=== PATIENT | female | born 1950 | race Caucasian/White ===

== ENCOUNTER 2016-10-09 16:42 | Emergency (ER) | payer OTHER ==
--- NOTE | 2016-10-09 16:58 | EDPHY ---
H & P Stated Complaint: possible allergic reaction; shakey, arms tingling Time Seen by Provider: 10/09/16 16:48 HPI/ROS: CHIEF COMPLAINT: "I'm jumpity" HISTORY OF PRESENT ILLNESS: 65-year-old female arrives by ambulance from [facility]. She went to [facility] urgent care initially via private vehicle stating that she returned to [facility] room from going for a walk should sudden onset of "feeling jumpity", described as anxiety/panic attack like symptoms, hyperventilation, carpal pedal spasms, symmetrical peripheral paresthesias. Denies: Headache, visual disturbance, chest pain, back pain, abdominal pain, nausea, vomiting, diaphoresis, alcohol or drug use, trauma. She notes no ongoing rash present for the past 1 month of unclear etiology. Describes this rash is waxing and waning, not followed dermatomal distribution, intermittently pruritic, nontender. No intraoral lesions. No genitalia lesions. No diarrhea. No vomiting. No ocular complaints. PRIMARY CARE PROVIDER: no primary care provider REVIEW OF SYSTEMS: A ten point review of systems was performed and is negative with the exception of the items mentioned in the HPI PAST MEDICAL & SURGICAL HISTORY: No history of thyroid disease, cardiac disease, pulmonary disease SOCIAL HISTORY: nonsmoker. Intermittent social alcohol. No cannabis or other drug use. FAMILY HISTORY: father with congenital heart defect otherwise no pertinent family history PHYSICAL EXAM (Prior to examination, patient consented to physical exam, hands were washed and my usual and customary physical exam procedures followed) 1) GENERAL: Well-developed, well-nourished, alert and oriented. Appears anxious , tremulous 2) HEAD: Normocephalic, atraumatic 3) HEENT: Pupils equal, round, reactive to light bilaterally. Sclera anicteric. Nasopharynx, oropharynx, clear, no lesions. no Tonsillar or glossal enlargement. No blunting of a voice. Ears bilaterally with normal tympanic membranes. 4) NECK: Full range of motion, no meningeal signs. 5) LUNGS: Clear auscultation bilaterally, no wheezes, no rhonchi, no retractions. 6) HEART: Regular rate and rhythm, no murmur, no heave, no gallop. 7) ABDOMEN: No guarding, no rebound, no focal tenderness, negative McBurney's, negative Pratt's, negative Rovsing's, negative peritoneal sign, 8) MUSCULOSKELETAL: Moving all extremities, no focal areas of tenderness, no obvious trauma. No peripheral edema or discoloration. 9) BACK: No CVA tenderness, no midline vertebral tenderness, no fluctuance, no step-off, no obvious trauma, no visual or palpable abnormality. 10) SKIN: Dermatologic examination with of female ER machine shop repair technician Damaris at bedside. Left suprapubic region 1 cm x 2 cm excoriated area nontender, nondraining non erythematous. No other lesions visualized in this area. Otherwise patient notes barely perceptible lesions in various locations including shoulders legs chest and back. These are flat, nontender, less than 1 mm, nonvesicular, does not follow a dermatomal distribution. 11) Psychiatric: Patient is oriented X 3, there is no agitation. 12) NEURO: Awake, alert, and oriented to person, place and time. Answers questions appropriately. There were no obvious focal neurologic abnormalities. No cerebellar dysfunction. Cranial nerves 2 through to 12 intact. Normal steady gait. Upper and lower extremities bilaterally with strength 5 / 5, reflexes 2+. DIFFERENTIAL DIAGNOSIS: in no particular order including but not limited to UT , anxiety, CVA, allergic reaction - Personal History Current Tetanus/Diphtheria Vaccine: Yes Current Tetanus Diphtheria and Acellular Pertussis (TDAP): Yes - Medical/Surgical History Hx Asthma: No Hx Chronic Respiratory Disease: No Hx Diabetes: No Hx Cardiac Disease: No Hx Renal Disease: No Hx Cirrhosis: No Hx Alcoholism: No Hx HIV/AIDS: No Hx Splenectomy or Spleen Trauma: No Other PMH: denies - Social History Smoking Status: Never smoked Constitutional: Initial Vital Signs Temperature (C) 36.4 C 10/09/16 16:52 Heart Rate 102 H 10/09/16 16:52 Respiratory Rate 20 10/09/16 16:52 Blood Pressure 145/102 H 10/09/16 16:52 O2 Sat (%) 100 10/09/16 16:52 O2 Delivery Mode Room Air Allergies/Adverse Reactions: Sulfa (Sulfonamide Antibiotics) Allergy (Severe, Verified 08/27/11 11:43) Anaphylaxis Home Medications: Medication Instructions Recorded LORazepam [Ativan 1 mg (RX)] 1 mg PO Q6 PRN #5 tab 10/09/16 Medical Decision Making ED Course/Re-evaluation: 5:05 p.m.: This patient appears anxious. She has no complaints of pain discomfort. Her primary concern is an ongoing rash for the past 1 month. I do not think this rash is secondary to acute infectious etiology such as cellulitis. Doubt zoster. Doubt varicella. Doubt Barclay-Sukh. Malignancy not ruled out. I have recommended follow-up with immigration lawyer she may necessitate biopsy of these lesions. 5:30 p.m.: Re-evaluation. States that she started to feel return symptoms including dry mouth, tingling in bilateral fingers and toes, anxiety. Will administer oral Ativan and re-evaluate. She has a nonfocal exam at this time as well. No complaints of chest pain, headache, visual disturbance, dyspnea. 6:40 p.m.: Re-evaluation after 1 mg of oral Ativan. At this time she is sleeping, easily woken, states that she is asymptomatic. She does describe intermittent "zing" sensations throughout her body, not followed definitive dermatomal pattern. She is reexamined has a nonfocal exam, is breathing comfortably. Had a lengthy discussion with the patient informed that I think that CVA, UT, PE, less than likely at this time. Doubt allergic reaction. She has no clinical evidence of allergic reaction was therefore not given medication to treat allergic reaction. She has inquired about her waxing and waning rash for the past 1 month specifically a lesion on her left suprapubic region. I have examined this area, it is findings are not consistent with infectious etiology. I have recommended follow-up with dermatology. Malignancy is not ruled out. I have provided her with dermatology referral information. She has an upcoming appoint with her primary care provider Dr. Jessica Donnelly that I recommend she keep. In the meantime should she develop new or worsening symptoms she is call 911. She feels comfortable being discharged all questions and concerns addressed by myself. Discussed case with Dr. Alcon Johnston in ER - Data Points Medications Given: Discontinued Medications Lorazepam (Ativan) 1 mg PO EDNOW ONE Stop: 10/09/16 17:34 Last Admin: 10/09/16 17:40 Dose: 1 mg Departure - Departure Disposition: Home, Routine, Self-Care Clinical Impression: Rash, Anxiety Condition: Good Instructions: Anxiety (ED), Acute Rash (ED) Additional Instructions: Call 911 if you develop chest pain, shortness of breath, slurred speech, difficulty speaking, difficulty breathing, worsening rash or any other symptoms that concern you. Referrals: Jessica Donnelly MD [Primary Care Provider] - 5-7 days, call for appt. Maurice Lugo MD [Medical Doctor] - 5-7 days, call for appt. (Dr. Alcon Lugo is a immigration lawyer at [facility]) Prescriptions: LORazepam [Ativan 1 mg (RX)] 1 mg PO Q6 PRN #5 tab PRN Reason: Anxiety
--- NOTE | 2016-10-09 17:08 | CPEKG ---
Heart Rate: 83 RR Interval: 723 P-R Interval: 149 QRSD Interval: 98 QT Interval: 400 QTC Interval: 470 P [place]: 53 QRS [place]: -27 T Wave [place]: 46 EKG Severity - OTHERWISE NORMAL ECG - EKG Impression: SINUS RHYTHM EKG Impression: BORDERLINE LEFT AXIS DEVIATION Electronically Signed By: Baldemar Armstrong 10-Oct-2016 14:23:54
[2016-10-09] MEDS ORDERED: LORazepam 1 MG TAB PO ONE (17:33)
[2016-10-09 19:09] VITALS: BP 111/73; PULSE 81; RESP 16; TEMP 98.2; O2SAT 96
== END 2016-10-09 19:21 | disposition home or self-care (01) ==
LOC: EDUNIT#
DX: F41.9 Anxiety disorder, unspecified (principal); R21 Rash and other nonspecific skin eruption

== ENCOUNTER → 2016-11-14 | Outpatient (CLI) | payer OTHER ==
[~2016-11-14] MED LIST: GADOBUTROL 10 ML VIAL IVP ONE
== END ==
LOC: FIMAGING 13:59
PROVIDERS: ATTEND Psychiatry & Neurology Neurology
DX: M50.821 Other cervical disc disorders at C4-C5 level (principal); M50.822 Other cervical disc disorders at C5-C6 level; M50.823 Other cervical disc disorders at C6-C7 level; R29.818 Other symptoms and signs involving the nervous system
CPT/HCPCS: 70553; 72141; A9585

== ENCOUNTER 2016-11-21 16:51 | Emergency (ER) | payer OTHER ==
[2016-11-21 17:09] VITALS: TEMP 97.9
--- NOTE | 2016-11-21 17:25 | EDPHY ---
H & P Stated Complaint: Shakiness,L arm numbness x several mos;L upper chest pain, sent for EKG Time Seen by Provider: 11/21/16 17:10 HPI/ROS: CHIEF COMPLAINT: Left upper arm numbness and tingling, with left lateral chest pressure HISTORY OF PRESENT ILLNESS: This is a 66-year-old female presenting to the emergency department complaining of left arm feeling pins and needles onset today around 1430. Patient states she has been seen back in September for similar symptoms, has been following up with neuro neuro surgery. Patient had 2 MRIs done yesterday November [address] Colby called her and stated some narrowing noted to the spinal canal but no acute finding. Patient states she has these episodes where she has numbness and tingling in her left upper extremity left lower extremity since the end of August, patient did report this symptoms were a little bit different with the left sided breast or chest pressure. Denies any shortness of breath or chest pain at this time no dizziness or lightheadedness REVIEW OF SYSTEMS: Constitutional: No fever, no chills. Eyes: No discharge. ENT: No sore throat. Cardiovascular: Left side breast pressure, no palpitations. Respiratory: No cough, no shortness of breath. Gastrointestinal: No abdominal pain, no vomiting. Genitourinary: No hematuria. Musculoskeletal: No back pain. Cervical trapezius pain, left upper and lower extremity tingling and numbness Skin: No rashes. Neurological: No headache, no dizziness Source: Patient, Family - Personal History Current Tetanus Diphtheria and Acellular Pertussis (TDAP): Unsure - Medical/Surgical History Hx Asthma: No Hx Chronic Respiratory Disease: No Hx Diabetes: No Hx Cardiac Disease: No Hx Renal Disease: No Hx Cirrhosis: No Hx Alcoholism: No Hx HIV/AIDS: No Hx Splenectomy or Spleen Trauma: No Other PMH: ?anxiety - Social History Smoking Status: Never smoked - Physical Exam Exam: General Appearance: Alert, no distress. Eyes: Pupils equal and round no pallor or injection. ENT, Mouth: Mucous membranes moist. Respiratory: There are no retractions, lungs are clear to auscultation. Cardiovascular: Regular rate and rhythm. Gastrointestinal: Abdomen is soft and nontender, no masses, bowel sounds normal. Neurological: No focal deficits. Equal bilateral strength. Ambulatory with steady gait without difficulty Skin: Warm and dry, no rashes. Musculoskeletal: Neck is supple, left trapezius tenderness on palpation. Extremities: symmetrical, full range of motion. Psychiatric: Patient is oriented X 3, there is no agitation. Constitutional: Initial Vital Signs Temperature (C) 36.6 C 11/21/16 17:06 Heart Rate 89 11/21/16 17:06 Respiratory Rate 20 11/21/16 17:06 Blood Pressure 141/102 H 11/21/16 17:06 O2 Sat (%) 100 11/21/16 17:06 O2 Delivery Mode Room Air Allergies/Adverse Reactions: Sulfa (Sulfonamide Antibiotics) Allergy (Intermediate, Verified 11/21/16 16:59) severe n/v Home Medications: Medication Instructions Recorded Diazepam [Valium 5 MG (*)] 5 mg PO PRN PRN #10 tab 11/21/16 methylPREDNISolone [Medrol Dose 1 each PO AD #0 ea 11/21/16 [place]] Medical Decision Making - Diagnostics Imaging Results: Imaging Impressions Chest X-Ray 11/21/16 17:25 Impression: Nothing acute radiographically. ED Course/Re-evaluation: Discussed the plan of care: EKG, CBC, BMP, troponin, chest x-ray,. Reviewed previous MRI of spine done on 10/25/2016 which shows moderate canal stenosis and disc herniation at T2 and T3 with additional stenosis along the cervical spine. Will consult with Dr. Colby office 1915: Discussed lab results and EKG with patient on negative. Also discussed with patient for her to follow up with Dr. Colby office and call Dr. Bundy in the morning for follow-up. Continue taking gabapentin, I have written a prescription for Medrol Dosepak this will help with inflammation. If at any point time you feel symptoms are worsening return to the emergency department 1920: DC home---> stable Differential Diagnosis: Other differential diagnosis considered but not limited to CVA, seizure, and [place] - Data Points Laboratory Results: Laboratory Results 11/21/16 17:30 11/21/16 17:30 11/21/16 11/21/16 17:30 17:30 WBC 5.17 10^3/uL 10^3/uL (3.80-9.50) RBC 4.68 10^6/uL 10^6/uL (4.18-5.33) Hgb 14.3 g/dL g/dL (12.6-16.3) Hct 40.3 % % (38.0-47.0) MCV 86.1 fL fL (81.5-99.8) MCH 30.6 pg pg (27.9-34.1) MCHC 35.5 g/dL g/dL (32.4-36.7) RDW 12.7 % % (11.5-15.2) Plt Count 382 10^3/uL 10^3/uL (150-400) MPV 9.0 fL fL (8.7-11.7) Neut % (Auto) 60.4 % % (39.3-74.2) Lymph % (Auto) 31.3 % % (15.0-45.0) [place] % (Auto) 7.7 % % (4.5-13.0) Eos % (Auto) 0.0 % L % (0.6-7.6) Baso % (Auto) 0.4 % % (0.3-1.7) Nucleat RBC Rel Count 0.0 % % (0.0-0.2) Absolute Neuts (auto) 3.12 10^3/uL 10^3/uL (1.70-6.50) Absolute Lymphs (auto) 1.62 10^3/uL 10^3/uL (1.00-3.00) Absolute Monos (auto) 0.40 10^3/uL 10^3/uL (0.30-0.80) Absolute Eos (auto) 0.00 10^3/uL L 10^3/uL (0.03-0.40) Absolute Basos (auto) 0.02 10^3/uL 10^3/uL (0.02-0.10) Absolute Nucleated RBC 0.00 10^3/uL 10^3/uL (0-0.01) Immature Gran % 0.2 % % (0.0-1.1) Immature Gran # 0.01 10^3/uL 10^3/uL (0.00-0.10) Sodium 142 mEq/L mEq/L (134-144) Potassium 3.8 mEq/L mEq/L (3.5-5.2) Chloride 103 mEq/L mEq/L (97-110) Carbon Dioxide 24 mEq/l mEq/l (22-31) Anion Gap 15 mEq/L mEq/L (8-16) BUN 17 mg/dL mg/dL (7-23) Creatinine 0.7 mg/dL mg/dL (0.6-1.0) Estimated GFR > 60 Glucose 98 mg/dL mg/dL (70-100) Calcium 10.4 mg/dL mg/dL (8.5-10.4) Troponin I < 0.012 ng/mL ng/mL (0-0.034) Medications Given: Discontinued Medications Diazepam (Valium) 5 mg PO EDNOW ONE Stop: 11/21/16 19:17 Last Admin: 11/21/16 19:24 Dose: 5 mg Departure - Departure Disposition: Home, Routine, Self-Care Clinical Impression: Numbness and tingling of left arm and leg Herniated disc Qualifiers: Spinal region: thoracic Qualified Code(s): M51.24 - Other intervertebral disc displacement, thoracic region Condition: Good Instructions: Paresthesia (ED) Additional Instructions: Discussed discharge instructions 1. continue taking gabapentin that was prescribed you 2. Start taking prednisone as prescribed 3. You have also been given a prescription for Valium to help with anxiety 4. Call Dr. Colby and Dr. Bundy is office tomorrow Referrals: Jessica Donnelly MD [Primary Care Provider] - As per Instructions Prescriptions: Diazepam [Valium 5 MG (*)] 5 mg PO PRN PRN #10 tab PRN Reason: Spasms methylPREDNISolone [Medrol Dose [place]] 1 each PO AD #0 ea
[2016-11-21 17:45] LABS: % IMMATURE GRANULYOCYTES 0.2 % (0.0-1.1); ABSOLUTE IMMATURE GRANULOCYTES 0.01 10^3/uL (0.00-0.10); ADD DIFF? NO; ADD MORPH? NO; ADD SCAN? NO; ATYPICAL LYMPHOCYTE FLAG 30 (0-99); FRAGMENT RBC FLAG 0 (0-99); HEMATOCRIT 40.3 % (38.0-47.0); HEMOGLOBIN 14.3 g/dL (12.6-16.3); LEFT SHIFT FLG 0 (0-99); LIPEMIA HEMOLYSIS FLAG 90 (0-99); MEAN CELL HEMOGLOBIN 30.6 pg (27.9-34.1); MEAN CELL HEMOGLOBIN CONCENTR. 35.5 g/dL (32.4-36.7); MEAN CELL VOLUME 86.1 fL (81.5-99.8); PLATELET CLUMPS FLAG 0 (0-99); PLATELET COUNT 382 10^3/uL (150-400); RED BLOOD CELL COUNT 4.68 10^6/uL (4.18-5.33); RED CELL DISTRIBUTION WIDTH 12.7 % (11.5-15.2)
--- NOTE | 2016-11-21 17:46 | CPEKG ---
Heart Rate: 73 RR Interval: 822 P-R Interval: 136 QRSD Interval: 108 QT Interval: 416 QTC Interval: 459 P [place]: 57 QRS [place]: -44 T Wave [place]: 35 EKG Severity - BORDERLINE ECG - EKG Impression: SINUS RHYTHM EKG Impression: BORDERLINE IVCD WITH LAD Electronically Signed By: Marcos Morris 21-Nov-2016 20:26:03
[2016-11-21 18:03] LABS: ANION GAP 15 mEq/L (8-16); CALCIUM 10.4 mg/dL (8.5-10.4); CARBON DIOXIDE 24 mEq/l (22-31); CHLORIDE 103 mEq/L (97-110); CREATININE 0.7 mg/dL (0.6-1.0); GLOMERULAR FILTRATION RATE > 60; GLUCOSE 98 mg/dL (70-100); POTASSIUM 3.8 mEq/L (3.5-5.2); SODIUM 142 mEq/L (134-144)
[2016-11-21 18:16] LABS: TROPONIN I < 0.012 ng/mL (0-0.034)
[2016-11-21] MEDS ORDERED: DIAZEPAM 5 MG TAB PO ONE (19:16)
[2016-11-21 19:25] VITALS: BP 162/95; PULSE 71; RESP 16; O2SAT 99
== END 2016-11-21 19:31 | disposition home or self-care (01) ==
DX: M51.24 Other intervertebral disc displacement, thoracic region (principal)

== ENCOUNTER → 2016-11-21 | Outpatient (CLI) | payer OTHER | LOC: FIMAGING 09:43 | DX: Z12.31 Encounter for screening mammogram for malignant neoplasm of breast (principal) | CPT/HCPCS: G0202 ==

== ENCOUNTER → 2016-11-23 | Outpatient (CLI) | payer OTHER | LOC: FIMAGING 12:11 | PROVIDERS: ATTEND Psychiatry & Neurology Neurology | DX: M51.84 Other intervertebral disc disorders, thoracic region (principal); M51.86 Other intervertebral disc disorders, lumbar region; M51.34 Other intervertebral disc degeneration, thoracic region; M48.06 Spinal stenosis, lumbar region ==

== ENCOUNTER → 2016-11-26 | Outpatient (CLI) | payer OTHER | LOC: FLAB 12:37 | PROVIDERS: ATTEND Neurological Surgery | DX: M54.2 Cervicalgia (principal); M50.30 Other cervical disc degeneration, unspecified cervical region; R93.7 Abnormal findings on diagnostic imaging of other parts of musculoskeletal system ==

== ENCOUNTER → 2016-12-02 | Outpatient (CLI) | payer OTHER ==
--- NOTE | 2016-12-03 13:07 | CPEEG ---
[f rep st] ELECTROENCEPHALOGRAM DATE OF STUDY: 12/02/2016 INTERPRETATION: This 4-hour video EEG recording is normal. There were no potentially epileptogenic abnormalities present during the awake or sleep recordings. During the video EEG monitoring johann rodriguez, the patient did not have any clinical events. REPORT: This 4-hour video EEG contains 11-12 hertz alpha to the posterior head regions. The backgr ound activity was normal and symmetric. There was no abnormal activation at rest, during photic sti mulation or hyperventilation. The patient became drowsy and fell into sustained sleep during the st udy. There was no abnormal activation during drowsiness, sleep, or during times of arousal. The anjelica pantoja did not have any clinical events during the video EEG monitoring session. /[id number]/MODL
== END ==
LOC: FCPNEURO 08:47
PROVIDERS: ATTEND Physician Assistant Medical
DX: R56.9 Unspecified convulsions (principal)

== ENCOUNTER → 2017-06-13 | Outpatient (CLI) | payer OTHER ==
[~2017-06-13] MED LIST changes: -GADOBUTROL 10 ML VIAL IVP ONE; +IOPAMIDOL (ISOVUE 370) 100 ML BTL IV ONE
== END ==
LOC: FIMAGING 12:34
PROVIDERS: ATTEND Psychiatry & Neurology Neurology
DX: R29.818 Other symptoms and signs involving the nervous system (principal); M47.892 Other spondylosis, cervical region
CPT/HCPCS: 70496; 70498; Q9967

== ENCOUNTER → 2018-01-22 | Outpatient (CLI) | payer OTHER | LOC: FIMAGING 11:38 | PROVIDERS: ATTEND Family Medicine | DX: Z12.31 Encounter for screening mammogram for malignant neoplasm of breast (principal) ==

== ENCOUNTER 2018-02-13 06:43 | Inpatient (IN) | payer OTHER ==
[2018-02-13] MEDS ORDERED: NS 500 ML IV ONE (06:59)
[2018-02-13] MEDS ORDERED: ONDANSETRON 4 MG/2 ML VIAL ONE (07:05)
[2018-02-13] MEDS ORDERED: ONDANSETRON 4 MG/2 ML VIAL IVP ONE (07:10)
[2018-02-13 07:27] LABS: PLATELET COUNT 301 10^3/uL (150-400)
--- NOTE | 2018-02-13 07:33 | CPEKG ---
Heart Rate: 43 RR Interval: 1395 QRSD Interval: 140 QT Interval: 632 QTC Interval: 535 P [place]: 74 QRS [place]: -85 T Wave [place]: 98 EKG Severity - ABNORMAL ECG - EKG Impression: COMPLETE AV BLOCK, A-RATE 91 EKG Impression: LVH WITH SECONDARY REPOLARIZATION ABNORMALITY EKG Impression: INFERIOR INFARCT, ACUTE EKG Impression: EXTENSIVE ANTERIOR INFARCT, AGE INDETERMINATE EKG Impression: PROLONGED QT INTERVAL Electronically Signed By: Jabari Mccray 13-Feb-2018 14:16:17
--- NOTE | 2018-02-13 07:34 | CPEKG ---
Heart Rate: 25 RR Interval: 2400 QRSD Interval: 162 QT Interval: 584 QTC Interval: 377 P [place]: 85 QRS [place]: 259 T Wave [place]: 91 EKG Severity - ABNORMAL ECG - EKG Impression: COMPLETE AV BLOCK WITH WIDE QRS COMPLEX Electronically Signed By: Jabari Mccray 13-Feb-2018 14:16:21
[2018-02-13 07:36] LABS: INR 1.09 (0.83-1.16); PROTIME(PATIENT) 14.3 SEC (12.0-15.0)
[2018-02-13] MEDS ORDERED: BIVALIRUDIN 250 MG/5 ML VIAL IV ONE (08:35)
[2018-02-13] MEDS ORDERED: ATROPINE SULFATE 1 MG/10 ML SYR ONE (08:35)
[2018-02-13] MEDS ORDERED: NITROGLYCERIN 1,500 MCG/15 ML VIAL MISC ONE (08:35)
[2018-02-13] MEDS ORDERED: EPINEPHrine 1 MG/10 ML SYR IVP ONE (08:35)
--- NOTE | 2018-02-13 08:38 | PDGENHP ---
History & Physical Chief Complaint: weakness, fatigue, and nausea History of Present Illness: Patient is a healthy 67 y/o F who began to feel ill on Friday of this week. She had weakness, nausea, vomiting, and diarrhea. Because of persistent symptoms, she presented to the emergency room today. Her ECG demonstrated complete heart block with a ventricular escape rate of approximately 25-30 beats per minute. Her troponin is elevated at 10. She has no prior cardiac history. She does have untreated hyperlipidemia. She is on no medications. Pertinent Past, Social, Family History: No major medical problems. Relevant Physical Exam: Hr in the 20's to 30's with CHB. Normal B/P. Lungs CTA. [place] RRRR. No edema.
--- NOTE | 2018-02-13 08:39 | PDPROPOC ---
Sedation Plan of Care Sedation Plan of Care: vital signs stable, mental status noted, patient educated of risks, benefits, alternatives, patient can tolerate sedation ASA Classification: ASA 1 Planned drugs: fentanyl, midazolam Mallampati Score: Class 2 Mallampati Reference Image: Patient passed 3-3-2 rule?: Yes
[2018-02-13] MEDS ORDERED: ATROPINE SULFATE 1 MG/10 ML SYR IVP PRN (09:26)
[2018-02-13] MEDS ORDERED: HYDROCODONE/APAP 5/325 TAB PO PRN (09:26)
[2018-02-13] MEDS ORDERED: NS 1,000 ML IV SCH ×2 (09:30→23:30)
--- NOTE | 2018-02-13 09:49 | PDDXCAT ---
Diagnostic Cath Note - . 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 LAD: Angiographically normal. LCX: Angiographically normal. RCA: Angiographically normal. EDP: 28 mmHg LVEF: 55% Wall motion: Inferoapical hypokinesis. Estimated blood loss: <50ml Closure method: other (Sheaths sewn in.) Assessment: 1) Angiographically normal coronary arteries. 2) Preserved LV function. 3) Complete heart block. Plan: A 6 Faroese sheath was placed in the right femoral vein. A 5 Faroese balloon- directed temporary pacing catheter was advanced to the right ventricular apex. Capture threshold was 2.2 mA. Temporary pacemaker set at 80 bpm with an output of 7 mA. Will arrange for permanent pacemaker implant.
--- NOTE | 2018-02-13 10:28 | GHP ---
[f rep st] HISTORY AND PHYSICAL DATE OF ADMISSION: 02/13/2018 REASON FOR ADMISSION: Complete heart block and elevated troponin. HISTORY: Ms. Paredes is a 67-year-old female with no significant past medical history. She was in her usual state of health, which includes running up to 5 miles per day and hiking. She and her went on a significant hike this past weekend. However, on Friday of this week she began to feel ill. She felt as if she had some type of flu with nausea, vomiting, and diarrhea. At times, she felt very lightheaded, particularly with orthostatic changes in position. Because of the persistence of her symptoms, she presented to the emergency room this morning. There, her ECG demonstrated complete heart block with a ventricular escape rate of 25-30 beats per minute. Her troponin was significantly elevated that 10.77. She denied any episodes of chest discomfort. PAST MEDICAL HISTORY: No major medical problems. MEDICATIONS: No prescription medications. ALLERGIES: Sulfa. SOCIAL HISTORY: She is . She does not smoke or consume significant amounts of alcohol. As mentioned, she is physically active. REVIEW OF SYSTEMS: Apart from the issues mentioned in the History of Present Illness, a 10-point review was negative. PHYSICAL EXAM: VITAL SIGNS: Heart rate 30 with a wide-complex ventricular escape rhythm on telemetry. Blood pressure 100/70. GENERAL: This is a middle- aged woman who appears acutely ill. She is alert and oriented x3. HEAD AND NECK: No scleral icterus. Mucous membranes moist. Carotid pulses 2+ without bruits. CHEST: Lung solis clear to auscultation. CARDIAC: Bradycardic. Regular rhythm with a normal S1 and S2. There are no murmur or gallop. ABDOMEN : Soft, nontender, nondistended, with normal bowel sounds. EXTREMITIES: 2+ pulses and no peripheral edema. LABORATORY STUDIES: Sodium 133, potassium 4.2, BUN and creatinine 31 and 1.3. Troponin 10.77. Her CBC is normal. ECG demonstrates complete heart block with a ventricular escape rhythm. IMPRESSION: This is a 67-year-old female who presents with flu-like symptoms characterized by nausea, vomiting, and diarrhea. She has complete heart block and a significantly elevated troponin. This could be consistent with a late presentation of an inferior myocardial infarction complicated by complete heart block. However, she has had no chest discomfort and has a low CAD risk- profile. Alternatively, she may have developed a viral myocarditis which has affected her conduction system. Preparations are under way to take the patient to the cardiac mechanical laboratory technician for coronary angiography and possible coronary intervention. A temporary transvenous pacemaker will be placed first. Depending on the results of her angiogram, she may require a permanent pacemaker. She will definitely require a hospital stay of greater than 2 midnights for care of her cardiac condition. /[id number]/MODL MTDD
[2018-02-13 10:29] LABS: CREATINE KINASE 444 IU/L (0-156)
[2018-02-13] MEDS ORDERED: IOPAMIDOL (ISOVUE-370) 150 ML BTL IV ONE ×2 (10:55→10:56)
[2018-02-13] MEDS ORDERED: LIDOCAINE 1% 300 MG/30 ML SDV ONE ×2 (10:56→11:13)
[2018-02-13] MEDS ORDERED: MIDAZOLAM 2 MG/2 ML VIAL ONE ×2 (10:56→11:13)
[2018-02-13] MEDS ORDERED: fentaNYL 100 MCG/2 ML INJ ONE ×2 (10:56→11:13)
[2018-02-13] MEDS ORDERED: LIDO/EPI 1% **for epidural** 30 ML SDV ONE (11:13)
[2018-02-13] MEDS ORDERED: IOPAMIDOL (ISOVUE-300) 50 ML VIAL ONE (11:13)
[2018-02-13] MEDS ORDERED: BUPIVACAINE 0.5% 30 ML SDV ONE (11:14)
[2018-02-13] MEDS ORDERED: BACITRACIN IRRIGATION/NS 50,000 UNITS/1,000 ML BTL IRR ONE (11:19)
[2018-02-13] MEDS ORDERED: ceFAZolin 2 GM/DEXTROSE 100 ML IV ONE (11:19)
[2018-02-13] MEDS ORDERED: NS 1,000 ML IV ONE ×2 (11:19→21:08)
--- NOTE | 2018-02-13 11:20 | PDPROPOC ---
Sedation Plan of Care Sedation Plan of Care: vital signs stable, mental status noted, patient educated of risks, benefits, alternatives, patient can tolerate sedation ASA Classification: ASA 4 Planned drugs: fentanyl, midazolam Mallampati Score: Class 1 Mallampati Reference Image: Patient passed 3-3-2 rule?: Yes
--- NOTE | 2018-02-13 11:20 | PDHPUP ---
History & Physical Update H&P update statement: This history and physical update is based on an assessment of the patient which was completed after admission or registration (within 24 hours), but prior to the surgery/procedure. H&P update: H&P reviewed & patient examined, no change in patient's condition since H&P completed
--- NOTE | 2018-02-13 12:17 | ECHO ---
[email or web address] [address] Main: [phone] Fax: Transthoracic Echocardiogram Name: DANETTE PELAEZ MR#: [id number] Study Date: 02/13/2018 Study Time: 11:08 AM Date of : 1950 Age: 67 year(s) Height: 160 cm (63 in.) Weight: 49.9 kg (110 lb.) BSA: 1.5 m2 Gender: Female Examination: Echo Indication: Complete heart block/elevated troponin Image Quality: Contrast: Requested by: Baldemar Armstrong BP: 117 mmHg/75 mmHg Heart Rate: Rhythm: Indication: Complete heart block/elevated troponin Procedure Staff Inventory Control Associate: Rocío Ortiz RDCS Reading Physician: Chris Noe MD Requesting Provider: Conclusions: Normal size left ventricle. Moderate concentric LV hypertrophy. The ejection fraction is estimated to be 40-45 %. LV inferior/inferoseptal brown have marked hypokinesis. LV apical hypokinesis.. Normal size right ventricle. The mitral valve is normal in appearance and function. Mild mitral valve regurgitation is present. The aortic valve is tri-leaflet. Trivial tricuspid valve regurgitation. No previous Measurements: Chambers Valvular Assessment AV/MV Valvular Assessment TV/PV Normal Normal Normal Name Value Range Name Value Range Name Value Range EF Range: 40-45 % AV meanP mmHg ( - ) MV E Vmax: 0.31 m/s ( - ) MV A Vmax: 0.47 m/s ( - ) MV E/A: 0.66 ( - ) Continued Measurements: Valvular Assessment AV/MV Name Value MV E' Septal: 0.03 m/s MV E/E' Septal: 9.10 MV E/E' Lateral: 3.20 Patient: DANETTE PELAEZ Study Date: 02/13/2018 Page 1 of 2 11:08 AM Findings: Left Ventricle: Normal size left ventricle. Moderate concentric LV hypertrophy. The ejection fraction is estimated to be 40-45 %. LV inferior/inferoseptal brown have marked hypokinesis. LV apical hypokinesis.. Right Ventricle: Normal size right ventricle. Left Atrium: The left atrium is normal in size. Right Atrium: The right atrium is normal in size. Mitral Valve: The mitral valve is normal in appearance and function. Mild mitral valve regurgitation is present. Aortic Valve: The aortic valve is normal in appearance and function. The aortic valve is tri-leaflet. Tricuspid Valve: The tricuspid valve is normal in appearance and function. Trivial tricuspid valve regurgitation. Pulmonic Valve: The pulmonic valve is normal in appearance and function. Aorta: The aorta is normal. Pericardium: Trivial pericardial effusion. (No Signature Object) Patient: DANETTE PELAEZ Study Date: 02/13/2018 Page 2 of 2 11:08 AM [id number]
--- NOTE | 2018-02-13 12:43 | ASMTCASEMG ---
Living Arrangements What is your living Answers: With Spouse arrangement? Who do you live with? Type Of Residence What kind of residence do Answers: House you live in? Discharge Plan Comments Coordination Status Comments Notes: Patient is a 67yo female with no significant past medical hx. She presents to the ER with nausea, vomiting, and diarrhea and lightheadedness. Her ECG demonstrated complete heart block with a ventricular escape rate of 25-30 beats per minute and her troponin was elevated 10.77. Patient will go to the [facility] for coronary angiography and possible coronary intervention. No therapies ordered at this time. D/C plan TBD. CM will follow. Date Signed: 02/13/2018 12:42 PM Electronically Signed By:Enedelia Tejeda LCSW
--- NOTE | 2018-02-13 13:51 | PDMN ---
Medical Necessity Medical necessity: Pt meets IP criteria per MD; est los >2 mn for eval/tx of complete heart block w/elevated troponin, N/V/D; admit to ICU for close monitoring/further workup, coronary angiography & possible coronary intervention ; per H&P & order 02/13/18
--- NOTE | 2018-02-13 14:22 | EDPHY ---
H & P Time Seen by Provider: 02/13/18 06:59 HPI/ROS: Chief complaint. Flu symptoms HPI. Patient is a 67-year-old female presents with body aches and headache. This has been occurring for the past 3 days. However at triage patient is found to have a heart rate of 32. She has no chest discomfort or shortness of breath. No cough. No URI symptoms. No fever. No abdominal pain. No history of cardiac disease[place] [address] [place] 5 days ago without any symptoms. The current flu type symptoms began 3 days ago. No unusual leg pain or swelling ROS Constitutional. no fever/chills, no weakness Eyes. no problems with vision ENT. no sore throat, no nasal drainage Cardiovascular. no chest pain Respiratory. no shortness of breath, no cough Abdominal. no abdominal pain, no nausea/vomiting, no diarrhea . no problems urinating MS. Myalgias Skin. no rash Lymph. no swollen glands Neuro. Headache Past Medical/Surgical History: Kidney stones No family history of coronary artery disease Social History: , nonsmoker, no alcohol Smoking Status: Never smoked Physical Exam: General Appearance: Alert well-developed female moderate distress vital signs significant for heart rate of 32 with blood pressure 100/70 Eyes: Pupils equal and round no pallor or injection. ENT, Mouth: Mucous membranes are moist. Respiratory: There are no retractions, lungs are clear to auscultation. Cardiovascular: Bradycardia Gastrointestinal: Abdomen is soft and nontender, no masses, bowel sounds normal. Neurological: Awake and alert, sensory and motor exams grossly normal. Skin: Warm and dry, no rashes. Musculoskeletal: Neck is supple nontender. Extremities symmetrical, full range of motion. Psychiatric: Patient is oriented X 3, there is no agitation. Constitutional: Initial Vital Signs O2 Sat (%) 100 02/13/18 06:55 O2 Delivery Mode Nasal Cannula O2 (L/minute) 2 Allergies/Adverse Reactions: Sulfa (Sulfonamide Antibiotics) Allergy (Intermediate, Verified 11/21/16 16:59) severe n/v Home Medications: Medication Instructions Recorded Acetaminophen [Tylenol 325mg (*)] 325 mg PO Q8HRS PRN 02/13/18 Ibuprofen [Motrin (*)] 200 mg PO Q8HRS PRN 02/13/18 Medical Decision Making - Diagnostics EKG Interpretation: EKG 1. Shows evidence of complete heart block. There is AV dissociation. Patient has 5 beats of atrial contractions before a ventricular contraction. Rate is 37 EKG 2. Again shows complete heart block this time with fewer atrial complexes between PVCs but the heart rate is 25. No significant ST elevation or depression. EKG 3. After observing ST elevation on the monitor shows ST elevation inferiorly with complete heart block continuing. Rate is 43 Imaging Results: Imaging Impressions Chest X-Ray 02/13/18 06:59 Impression: Normal chest x-ray. One-view chest x-ray interpreted by me is normal Procedures: IV normal saline, monitor. Pacer pads are placed ED Course/Re-evaluation: Patient's heart rate gets down as low as 19. She does not maintain consciousness and blood pressure though it does get down to about 80/40 I consulted and discussed case with Dr. Javier Salazar at 7:15 a.m.. At 7:30 a.m. Patient is found to have a troponin of 10. I discussed the case again with Dr. Salazar weak all cardiac alert. Dr. Armstrong calls back at 7:40 a.m.. [employer] team is here. Patient, her and I discussed diagnosis, treatment plan including recommendation for cathode builder and pacemaker. They expressed understanding and agreement Serial evaluations and near continuous observation of this patient in the emergency department shows that we never half to pacer, she never loses consciousness, her blood pressure drops to 80/40 but otherwise she remains relatively stable Differential Diagnosis: Acute coronary syndrome with elevated troponin and evidence on EKG of acute DC. Complete heart block is also present. Patient has no risk factors for early coronary artery disease and I suspect this may represent a myocarditis as the patient does complain of flu symptoms. [place] [address] [place] 5 days ago Critical Care Time: Critical care time exclusive procedures 50 min - Data Points Laboratory Results: Laboratory Results 02/13/18 07:12 02/13/18 07:12 02/13/18 02/13/18 02/13/18 07:20 07:17 07:12 WBC RBC Hgb POC Hgb 14.3 gm/dL gm/dL (12.6-16.3) Hct POC Hct 42 % % (38-47) MCV MCH MCHC RDW Plt Count MPV Neut % (Auto) Lymph % (Auto) [place] % (Auto) Eos % (Auto) Baso % (Auto) Nucleat RBC Rel Count Absolute Neuts (auto) Absolute Lymphs (auto) Absolute Monos (auto) Absolute Eos (auto) Absolute Basos (auto) Absolute Nucleated RBC Immature Gran % Immature Gran # PT INR APTT POC Sodium 133 mEq/L L mEq/L (135-145) Sodium POC Potassium 4.2 mEq/L mEq/L (3.3-5.0) Potassium POC Chloride 99 mEq/L mEq/L (97-110) Chloride Carbon Dioxide Anion Gap POC BUN 31 mg/dL H mg/dL (7-23) BUN Creatinine POC Creatinine 1.3 mg/dL H mg/dL (0.6-1.0) Estimated GFR Glucose POC Glucose 197 mg/dL H mg/dL (70-100) Calcium Creatine Kinase 444 IU/L H IU/L (0-156) CK-MB (CK-2) Fraction 84.10 ng/mL H ng/mL (0.00-4.55) CK-MB (CK-2) % 18.9 % H % (0.0-4.0) Creatine Kinase Interp POSITIVE H (NEGATIVE) POC Troponin I 10.77 ng/mL H ng/mL (0.00-0.08) NT-Pro-B Natriuret Pep 41109 pg/mL H pg/mL (0-125) TSH 6.080 uIU/mL H uIU/mL (0.465-4.680) 02/13/18 02/13/18 02/13/18 07:12 07:12 07:12 WBC 8.34 10^3/uL 10^3/uL (3.80-9.50) RBC 4.39 10^6/uL 10^6/uL (4.18-5.33) Hgb 13.6 g/dL g/dL (12.6-16.3) POC Hgb Hct 39.6 % % (38.0-47.0) POC Hct MCV 90.2 fL fL (81.5-99.8) MCH 31.0 pg pg (27.9-34.1) MCHC 34.3 g/dL g/dL (32.4-36.7) RDW 12.7 % % (11.5-15.2) Plt Count 301 10^3/uL 10^3/uL (150-400) MPV 9.9 fL fL (8.7-11.7) Neut % (Auto) 74.7 % H % (39.3-74.2) Lymph % (Auto) 17.9 % % (15.0-45.0) [place] % (Auto) 6.7 % % (4.5-13.0) Eos % (Auto) 0.1 % L % (0.6-7.6) Baso % (Auto) 0.2 % L % (0.3-1.7) Nucleat RBC Rel Count 0.0 % % (0.0-0.2) Absolute Neuts (auto) 6.23 10^3/uL 10^3/uL (1.70-6.50) Absolute Lymphs (auto) 1.49 10^3/uL 10^3/uL (1.00-3.00) Absolute Monos (auto) 0.56 10^3/uL 10^3/uL (0.30-0.80) Absolute Eos (auto) 0.01 10^3/uL L 10^3/uL (0.03-0.40) Absolute Basos (auto) 0.02 10^3/uL 10^3/uL (0.02-0.10) Absolute Nucleated RBC 0.00 10^3/uL 10^3/uL (0-0.01) Immature Gran % 0.4 % % (0.0-1.1) Immature Gran # 0.03 10^3/uL 10^3/uL (0.00-0.10) PT 14.3 SEC SEC (12.0-15.0) INR 1.09 (0.83-1.16) APTT 21.5 SEC L SEC (23.0-38.0) POC Sodium Sodium 132 mEq/L L mEq/L (135-145) POC Potassium Potassium 4.4 mEq/L mEq/L (3.3-5.0) POC Chloride Chloride 100 mEq/L mEq/L (97-110) Carbon Dioxide 16 mEq/l L mEq/l (22-31) Anion Gap 16 mEq/L mEq/L (8-16) POC BUN BUN 31 mg/dL H mg/dL (7-23) Creatinine 1.1 mg/dL H mg/dL (0.6-1.0) POC Creatinine Estimated GFR 50 Glucose 184 mg/dL H mg/dL (70-100) POC Glucose Calcium 8.9 mg/dL mg/dL (8.5-10.4) Creatine Kinase CK-MB (CK-2) Fraction CK-MB (CK-2) % Creatine Kinase Interp POC Troponin I NT-Pro-B Natriuret Pep TSH Medications Given: Discontinued Medications Sodium Chloride (Ns) 500 mls @ 0 mls/hr IV EDNOW ONE; Wide Open PRN Reason: Protocol Stop: 02/13/18 07:00 Last Admin: 02/13/18 07:11 Dose: 500 mls Ondansetron HCl (Zofran) 4 mg IVP EDNOW ONE Stop: 02/13/18 07:11 Last Admin: 02/13/18 07:11 Dose: 4 mg Point of Care Test Results: Chemistry 02/13/18 02/13/18 07:20 07:17 POC Sodium 133 mEq/L L mEq/L (135-145) POC Potassium 4.2 mEq/L mEq/L (3.3-5.0) POC Chloride 99 mEq/L mEq/L (97-110) POC BUN 31 mg/dL H mg/dL (7-23) POC Creatinine 1.3 mg/dL H mg/dL (0.6-1.0) POC Glucose 197 mg/dL H mg/dL (70-100) POC Troponin I 10.77 ng/mL H ng/mL (0.00-0.08) ISTAT H&H 02/13/18 07:17 POC Hgb 14.3 gm/dL gm/dL (12.6-16.3) POC Hct 42 % % (38-47) Departure - Departure Disposition: To OP Cath/Surgery Clinical Impression: Complete heart block Condition: Fair
--- NOTE | 2018-02-13 15:27 | CPEKG ---
Heart Rate: 58 RR Interval: 1034 P-R Interval: 108 QRSD Interval: 112 QT Interval: 408 QTC Interval: 401 P [place]: 0 QRS [place]: 114 T Wave [place]: -62 EKG Severity - ABNORMAL ECG - EKG Impression: VENTRICULAR-PACED COMPLEXES EKG Impression: LOW VOLTAGE IN FRONTAL LEADS Electronically Signed By: Manuel Coreas 13-Feb-2018 15:39:59
--- NOTE | 2018-02-13 15:50 | SUROPNOTE ---
[facility] Operative Report - Surgery PERMANENT PACER IMPLANTATION PROCEDURE PERFORMED: Dual chamber PPM implant COMPLICATIONS: none ESTIMATED BLOOD LOSS: <50 cc SITE: LEFT/RIGHT subclavian vein access. INDICATION: Complete Heart Block PROCEDURE: The risks, benefits, and alternative of the procedure were all discussed with the patient and the patient's family in detail at great length. Overall options and precautions of the pacemaker and indications were all discussed. They agreed to the pacemaker. The consent was signed and placed in the chart. The patient was taken to the Cardiac Catheterization Lab, where she was monitored throughout the whole procedure. The patient was sterilely prepped and draped in the usual manner for permanent pacemaker insertion. Using a lidocaine the area of the left subclavian vein and left pectodeltoid region was anesthetized locally. IV sedation, increments, and analgesics were given. Using a #18 gauge needle, the left subclavian vein access was cannulated without difficulty. A guidewire was then passed through the Cook needle and the Cook needle was then removed. The wire was secured in place with the hemostat. A second needle and cannulation was performed with a second guidewire was then passed through the Cook needle with removal of the Cook needle, and securing of the wire in place with the primary wire. Using a #10 and #15 scalpel blade, a 5 cm horizontal incision was made in the left pectoral deltoid region where the skin was dissected and blunted down into the pectoris major muscle fascia. The skin was then undermined used to make a pocket for the pacemaker. The guidewires were then tunneled through the pacer pocket. Cordis sheath was then inserted through the guidewire. The guidewire and dilator were removed. A 7F cordis sheath was used for insertion of the ventricular screw and steroid diluted lead under fluoroscopy. It was placed into the septum/apex. The cordis sheath was then split apart and removed and after the ventricular lead was placed in its appropriate position and good thresholds were obtained, the lead was then sutured in place with #1-0 silk suture to the pectoris major muscle. The second Cordis sheath was then inserted through a guidewire. The guidewire and dilator were removed. The 7F cordis sheath used for the insertion of the atrial screw and steroid diluted lead under fluoroscopy. It was placed into the right atrium. The cordis sheath was then split apart and revoved and after the atrial lead was placed in its appropriate position and good thresholds were obtained, the lead was then sutured in place with #1-0 silk suture to the pectoris major muscle. The lead was then connected on pulse generator. The pocket was then irrigated and cleansed. Pulse generator and the wire was then inserted into the pocket, and sutured into position. The deep pocket (initial suture) was then closed with #2-0 suture. An intermediate, running suture (#3-0 ) was placed, and finally, the skin was closed with #4-0 sutures using a subcuticular uninterrupted technique. The area was then cleansed and dried. Steri-Strips and pressure dressing was then applied. The patient tolerated the procedure well. There were no complications. Settings on the pacemaker: DDD IMPLANT DEVICE: AssTPACK STJ Model#: [id number] SN: [id number] VENTRICLE LEAD: Tendril STS Model#: [id number]-[id number] SN: [id number] ATRIAL LEAD: Tendril STS Model#: [id number]-[id number] SN: [id number] AKIRA PARAMETER SETTINGS ARE FOLLOWS: Lower rate limit was set to 60 STIMULATION THRESHOLDS: Atrial capture: 0.4V @ 0.5 ms, 0.7 mA sensing at 1.4 mV, 0.2 V/s and Impedance at 519 ohms Ventricular capture: 0.6 V @ 0.5 ms, 1.1 mA sensing at 13.4 mV, 2.7 V/s and Impedance at 530 ohms The patient tolerated the procedure well. There was no complications. The patient went to recovery in stable condition. Chest x-ray will be ordered. Thank you for allowing me to participate in her care. If you have any questions or concerns, please feel free to contact
[2018-02-13 18:26] LABS: CREATINE KINASE 486 IU/L (0-156)
[2018-02-13] MEDS: ONDANSETRON 4 MG/2 ML VIAL IVP PRN ×2 (20:35→23:09)
[2018-02-13 21:39] LABS: PLATELET COUNT 245 10^3/uL (150-400)
[2018-02-13] MEDS ORDERED: NOREPINEPHRINE BITARTRATE 4 MG in D5W 500 ML IV SCH (22:00)
[2018-02-13] MEDS ORDERED: methylPREDNISolone SOD SUCC 50 MG in D5W 100 ML IV ONE (22:33)
--- NOTE | 2018-02-13 23:07 | GDS ---
[f rep st] DISCHARGE SUMMARY REASON FOR ADMISSION: Complete heart block and elevated troponin. HOSPITAL COURSE: Please refer to my previously dictated admission history and physical, cardiac catheterization report, and Dr. Griggs pacemaker implantation report. Briefly, the patient is a 67-year-old female with no significant prior medical history. On Friday of this week, she developed nausea, vomiting, and diarrhea. This persisted over the course of a few days. She also experienced significant lightheadedness and general malaise. She did not have any chest discomfort or fever. She arrived at the emergency room this morning, and her initial ECG demonstrated complete heart block with a wide ventricular escape rhythm at 25 to 30 beats per minute. Her initial troponin was 10.77. I took the patient to the cardiac catheterization lab, where she was found to have angiographically normal coronary arteries. Her left ventricular ejection fraction was approximately 45%, with mild global hypokinesis. Left ventricular end-diastolic pressure was elevated at 30 mmHg. Subsequent to her catheterization, my partner implanted a [employer] dual-chamber pacemaker. She was then transferred to telemetry. Her blood pressure in the emergency room was borderline at 100 mm systolic. In the afternoon and evening time, she began to develop worsening hypotension with blood pressures as low as 77/64 mmHg. The patient was beginning to feel lightheaded and lethargic. At approximately the 9:45 p.m. tonight, I was contacted by our hospitalist service to report the change in the patient's condition. Her 2nd troponin has increased to 28.9. A BNP level was 14,500. At this point, I became concerned that she was demonstrating a clinical picture consistent with fulminant myocarditis, possibly giant cell myocarditis with a high risk for morbidity and mortality. I contacted the [facility] physician line and was placed in contact with Dr. Mauro Escalera from the heart failure/ transplantation service. He agreed that her clinical picture was consistent with myocarditis and is willing to accept her in transfer this evening. At the time of this dictation, she is having a central line placed by our surgery service. She will then be transferred to the intensive care unit, where intravenous pressor support will be started. In discussion with Dr. Escalera, he suggested that we give her an initial steroid dose consisting of Solu -Medrol 1 mg/kg. The [facility] will be contacting our ICU to arrange for transport this evening. DISCHARGE DIAGNOSES: 1. Complete heart block, status post dual-chamber pacemaker implantation. 2. Nonischemic cardiomyopathy. 3. Acute myocarditis. /[id number]/MODL MTDD
--- NOTE | 2018-02-13 23:08 | HOSPPROG ---
Hospitalist Progress Note Assessment/Plan: 60 min of critical care time spent consulting on this patient, [id number], at bedside, rendering the following services: -contacted by nurse that the patient's systolic blood pressure was in the 70s, responded to bedside and evaluated the patient, noting that she was symptomatically hypotensive with increased lightheadedness upon sitting upright , complaints of fatigue, some evidence of slow thought process, heart rhythm was regular without any significant murmurs rubs or gallops, lungs were clear to auscultation bilaterally, pacemaker pocket was nontender, no significant surrounding ecchymoses or erythema, abdomen was soft nontender nondistended, no lower extremity edema, alert awake oriented x3 -reviewed cardiology notes, indicating that the patient presented with 4 days of malaise, nausea, vomiting, diarrhea, lightheadedness, noted to be in complete heart block on presentation with a heart rate between 25 and 30, underwent permanent pacemaker placement -obtain chest x-ray which demonstrates no evidence of pneumothorax, no evidence of congestive heart failure, no significant cardiac enlargement to suggest large pericardial effusion -patient reports that since the procedure, she has not had any significant oral intake and she was not having any significant oral intake prior to the procedure -review of patient's labs indicate that she had some mild hyponatremia with a serum sodium level of 133, some acute kidney injury with a serum creatinine level 1.3, evidence of troponin leak with a 6:00 p.m. Troponin of 28, and no evidence of obstructive coronary disease with clean coronary arteries on cardiac catheterization -venous lactic acid sent stat, 4.6, indicative of cardiogenic shock -discussed with Dr. Baldemar Armstrong, he is the provider who saw the patient originally on her presentation and performed a cardiac catheterization -he is concerned that the patient may be experiencing evolving, worsening myocarditis with rising troponin level at 35 -he has discussed the case with Dr. Ramy Escalera at [facility] and he has recommended pressors, 1 mg/kg dose of IV Solu-Medrol and they will except the patient in transfer to their heart failure/heart transplant unit -1 L normal saline has been bolused, repeat lactic acid level now, continue normal saline at 150/hr and monitor for any signs of congestive heart failure, given that her ejection fraction is 40-45%, [place] [address] -in the interim, the patient has been transferred to our intensive care unit, she is getting central line placement by Dr. Solano, and she will be placed on Levophed for pressor support and critical care transport will be arranged -the patient remains critically ill secondary to cardiogenic shock with high risk of worsening morbidity and/or mortality if she does not receive transfer to [facility] Objective: Vital Signs Temp Pulse Resp BP Pulse Ox 36.2 C 50 L 10 L 91/60 L 99 02/13/18 22:50 02/13/18 22:50 02/13/18 22:50 02/13/18 22:54 02/13/18 22:50 Laboratory Results 02/13/18 20:30 02/13/18 20:30 02/12/18 02/13/18 02/14/18 05:59 05:59 05:59 Intake Total 1450 Output Total 120 Balance 1330 PT 14.3 SEC (12.0-15.0) 02/13/18 07:12 INR 1.09 (0.83-1.16) 02/13/18 07:12 ICD10 Worksheet Patient Problems: Problems Problem Status Onset Complete heart block Acute
[2018-02-14 01:54] LABS: CREATINE KINASE 451 IU/L (0-156)
[2018-02-14] MEDS ORDERED: FUROSEMIDE 40 MG/4 ML VIAL IVP ONE (02:13)
[2018-02-14] MEDS ORDERED: DOBUTamine 500 MG in D5W 250 ML IV SCH (02:30)
[2018-02-14] MEDS ORDERED: DOBUTamine/DEXTROSE 250 ML IV SCH (02:30)
[2018-02-14 02:39] VITALS: BP 109/87
--- NOTE | 2018-02-21 19:56 | GOP ---
[f rep st] OPERATIVE REPORT DATE OF OPERATION: 02/13/2018 SURGEON: Chris Solano MD PREOPERATIVE DIAGNOSIS: Sepsis. POSTOPERATIVE DIAGNOSIS: Sepsis. PROCEDURE PERFORMED: Right subclavian triple-lumen catheter placement. FINDINGS: Good position and flow DESCRIPTION OF PROCEDURE: Patient was in bed in the intensive care unit. She was prepped and draped in the usual sterile fashion and anesthetized with 1% Xylocaine. A direct stick was made in the right subclavian vein without difficulty. A guidewire was introduced. A dilator was passed with the guidewire. A triple-lumen catheter was then passed over the guidewire, which was removed. Good backflow was achieved. The catheter was irrigated with saline and secured to the skin with interrupted 3-0 nylon sutures. Chest x-ray shows good position of the catheter with no complications. She tolerated the procedure well. The wound was dressed. /[id number]/MODL MTDD
== END 2018-02-14 02:55 | disposition short-term general hospital (02) | DRG 242 ==
LOC: F2N 09:42 → F2W 15:44 → F2N 22:45
PROVIDERS: ADMIT Internal Medicine Interventional Cardiology; ATTEND Internal Medicine Interventional Cardiology
PROC: 0JH606Z Insertion of Pacemaker, Dual Chamber into Chest Subcutaneous Tissue and Fascia, Open Approach (ICD-10-PCS; principal; 2018-02-13)
PROC: 02H63JZ Insertion of Pacemaker Lead into Right Atrium, Percutaneous Approach (ICD-10-PCS; principal; 2018-02-13)
PROC: 02HK3JZ Insertion of Pacemaker Lead into Right Ventricle, Percutaneous Approach (ICD-10-PCS; principal; 2018-02-13)
PROC: B2151ZZ Fluoroscopy of Left Heart using Low Osmolar Contrast (ICD-10-PCS; 2018-02-13)
PROC: B2111ZZ Fluoroscopy of Multiple Coronary Arteries using Low Osmolar Contrast (ICD-10-PCS; 2018-02-13)
PROC: 4A023N7 Measurement of Cardiac Sampling and Pressure, Left Heart, Percutaneous Approach (ICD-10-PCS; 2018-02-13)
DX: I44.2 Atrioventricular block, complete (principal); I40.9 Acute myocarditis, unspecified; I42.9 Cardiomyopathy, unspecified
CPT/HCPCS: 82435-PO; 82565-PO; 82947-PO; 84132-PO; 84295-PO; 84484-PO; 84520-PO; 85014-PO; 96374; C1760; C1785; C1898; J0461; J0583; J0690; J1200; J1250; J1265; J1644; J1940; J2250; J2270; J2405; J2930; J3010; Q9967

== ENCOUNTER 2018-04-07 21:01 | Emergency (ER) | payer OTHER ==
[2018-04-07] MEDS ORDERED: NS 500 ML IV ONE (21:29)
[2018-04-07] MEDS ORDERED: ONDANSETRON 4 MG/2 ML VIAL IVP ONE (21:39)
[2018-04-07] MEDS ORDERED: FAMOTIDINE 20 MG/NACL 50 ML IV ONE (21:39)
[2018-04-07] MEDS ORDERED: LIDOCAINE 2% VISCOUS 15 ML UDCUP PO ONE (21:39)
[2018-04-07] MEDS ORDERED: MAG HYDROX/AL HYDROX/SIMETH 30 ML UDCUP PO ONE (21:39)
[2018-04-07] MEDS ORDERED: HYDROmorphONE/DILAUDID 2 MG/ML INJ IVP ONE (21:39)
[2018-04-07] MEDS ORDERED: HYOSCYAMINE SULFATE 0.125 MG TAB PO ONE (21:39)
--- NOTE | 2018-04-07 21:49 | EDPHY ---
H & P Smoking Status: Never smoked Time Seen by Provider: 04/07/18 21:29 HPI/ROS: HPI Epigastric pain. 67-year-old female by private vehicle with family. This patient reports that 4: 00 a.m. She woke with which she describes as a burning sensation with radiation to her back in her mid epigastrium. She reports that she took some Tums and other antacids at this time and felt better. She reports that tonight after taking her prescription medications at approximately 5:00 p.m. The pain came back and has been persistent since that time. She reports that over the last couple of hours it has worsened. She describes it as a burning sensation with radiation to her back. She has had associated nausea but no vomiting. ROS: Constitutional: No fever, no chills. No weakness. Eyes: No discharge. No changes in vision. ENT: No sore throat. No nasal congestion or rhinorrhea. Respiratory: No cough. No shortness of breath. Cardiac: No chest pain, no palpitations. Gastrointestinal: As above, no vomiting, no diarrhea. Genitourinary: No hematuria. No dysuria or increased frequency with urination. Musculoskeletal: No back pain. No neck pain. No myalgias or arthralgias. Skin: No rashes. Neurological: No headache. No focal weakness or altered sensation. Past medical history: Dual-chamber pacemaker placed January of [address] Armstrong. 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 Social history: Here with family. Physical Exam: General Appearance: Alert, she appears uncomfortable but not in distress. This patient is responding to questions appropriately and in full sentences. This patient appears well-hydrated and well-nourished. Eyes: Pupils equal and round no pallor or injection. No lid edema, erythema or injection. ENT, Mouth: Mucous membranes are moist. The pharyngeal tissues are unremarkable. No edema or swelling. No asymmetry suggestive of abscess. No erythema or exudates. Respiratory: There are no retractions, lungs are clear to auscultation with good air movement bilaterally. Cardiovascular: Regular rate and rhythm. No murmur. Gastrointestinal: Abdomen is soft with mid epigastric tenderness on palpation, no masses, bowel sounds normal. No focal tenderness at McBurney's point. No Pratt sign. Neurological: Motor sensory function is grossly intact. Cranial nerves are normal. Gait is normal. Skin: Warm and dry, no rashes. Musculoskeletal: Neck is supple and nontender. Extremities are symmetrical. All joints range without pain or impingement. Psychiatric: No agitation. No depression. Database: EKG: EKG time is 9:18 p.m.; EKG shows a narrow complex normal sinus rhythm with a ventricular rate of 74. Multiple PACs and PVCs noted. Left axis deviation noted. The MD, QRS, QT intervals are within normal limits. QS waves V1 and V2. There are no ST-T wave changes indicative of ischemic or injury pattern. No evidence of right heart strain. Interpreted by me. Imaging: Right upper quadrant ultrasound: Retroperitoneal aortic ultrasound: Procedures: Emergency department course: IV was placed. Triage vital signs reviewed. She is moderately hypertensive. Vital signs otherwise normal. She was started on IV normal saline with 500 cc to be given over the next hour. She will initially be given 4 mg of IV Zofran, 20 mg of IV Pepcid and 0.25 mg of IV hydromorphone for pain. The hydromorphone dose will be repeated every 10 min up to x3 for adequate pain control. She will also be given a GI cocktail. EKG obtained and reviewed by myself. 10:55 p.m., the patient was re-evaluated. She is currently having her ultrasounds done. She is comfortable. Her pain is well controlled. I discussed the results of her emergency department workup as of this time with the patient and her family. I discussed admission. She does not wish to be admitted. Her family does not want her to be admitted. 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 I feel this is reasonable. Her care was turned over to Dr. Alcon Johnston at 11:00 p.m. pending results of her ultrasounds. Differential Diagnosis: The differential diagnosis on this patient includes but is not limited to pancreatitis, cholecystitis, ulcerative versus non ulcerative gastritis, aortic dissection, acute coronary syndrome. This represents a partial list of diagnoses considered. These considerations are based on history, physical exam , past history, reassessment and diagnostic testing. (McCollester,Sukumar B) Constitutional: Initial Vital Signs Temperature (C) 36.7 C 04/07/18 21:07 Heart Rate 70 04/07/18 21:07 Respiratory Rate 18 04/07/18 21:07 Blood Pressure 153/99 H 04/07/18 21:07 O2 Sat (%) 100 04/07/18 21:07 O2 Delivery Mode Room Air Allergies/Adverse Reactions: Sulfa (Sulfonamide Antibiotics) Allergy (Intermediate, Verified 04/07/18 21:11) severe n/v Home Medications: Medication Instructions Recorded Alendronate Sodium 04/07/18 Atovaquone 04/07/18 Cyclosporine 04/07/18 LORAZEPAM 04/07/18 Metoprolol ER-Hctz 100-12.5 mg 04/07/18 Nystatin 04/07/18 Pantoprazole Sodium 04/07/18 Prednisone 04/07/18 traZODone 04/07/18 Medical Decision Making - Diagnostics Imaging Results: Imaging Impressions Chest X-Ray 04/07/18 21:29 Impression: Chest negative for acute cardiopulmonary abnormality. ED Course/Re-evaluation: 2317: Patient was signed over to me at 11:00 p.m. Shift change follow-up this patient's ultrasound of the right upper quadrant ultrasound of the abdomen. These ultrasounds are called to me by Dr. Lawson in her negative. The plan was after the ultrasounds are negative the patient can go home per Dr. Crenshaw. (Alcon Johnston) - Data Points Laboratory Results: Laboratory Results 04/07/18 21:21 04/07/18 21:21 04/07/18 04/07/18 04/07/18 22:16 21:21 21:21 WBC RBC Hgb Hct MCV MCH MCHC RDW Plt Count MPV Neut % (Auto) Lymph % (Auto) Page % (Auto) Eos % (Auto) Baso % (Auto) Nucleat RBC Rel Count Absolute Neuts (auto) Absolute Lymphs (auto) Absolute Monos (auto) Absolute Eos (auto) Absolute Basos (auto) Absolute Nucleated RBC Immature Gran % Seg Neutrophils % Band Neutrophils % Lymphocytes % Monocytes % Eosinophils % Basophils % Metamyelocytes % Myelocytes % Promyelocytes % Blast Cells % Immature Gran # Absolute Seg Neuts Absolute Band Neuts Absolute Lymphocytes Absolute Monocytes Absolute Eosinophils Absolute Basophils Absolute Metamyelocyte Absolute Myelocytes Absolute Promyelocytes Absolute Plasma Cells Nucleated RBCs RBC/WBC/PLT Morphology Absolute Blast Cells Plasma Cells % Platelet Estimate PT 12.1 SEC SEC (12.0-15.0) INR 0.87 (0.83-1.16) APTT 20.0 SEC L SEC (23.0-38.0) Sodium 132 mEq/L L mEq/L (135-145) Potassium 3.6 mEq/L mEq/L (3.3-5.0) Chloride 100 mEq/L mEq/L (97-110) Carbon Dioxide 20 mEq/l L mEq/l (22-31) Anion Gap 12 mEq/L mEq/L (8-16) BUN 42 mg/dL H mg/dL (7-23) Creatinine 0.7 mg/dL mg/dL (0.6-1.0) Estimated GFR > 60 Glucose 146 mg/dL H mg/dL (70-100) Calcium 10.2 mg/dL mg/dL (8.5-10.4) Total Bilirubin 1.0 mg/dL mg/dL (0.1-1.4) Conjugated Bilirubin 0.3 mg/dL mg/dL (0.0-0.5) Unconjugated Bilirubin 0.7 mg/dL mg/dL (0.0-1.1) AST 17 IU/L IU/L (14-46) ALT 33 IU/L IU/L (9-52) Alkaline Phosphatase 50 IU/L IU/L (38-126) POC Troponin I 0.05 ng/mL ng/mL (0.00-0.08) Total Protein 7.3 g/dL g/dL (6.3-8.2) Albumin 4.3 g/dL g/dL (3.5-5.0) Lipase 111 IU/L IU/L (23-300) 04/07/18 21:21 WBC 13.57 10^3/uL H 10^3/uL (3.80-9.50) RBC 4.41 10^6/uL 10^6/uL (4.18-5.33) Hgb 13.5 g/dL g/dL (12.6-16.3) Hct 39.0 % % (38.0-47.0) MCV 88.4 fL fL (81.5-99.8) MCH 30.6 pg pg (27.9-34.1) MCHC 34.6 g/dL g/dL (32.4-36.7) RDW 14.0 % % (11.5-15.2) Plt Count 380 10^3/uL 10^3/uL (150-400) MPV 9.2 fL fL (8.7-11.7) Neut % (Auto) Not Reported Lymph % (Auto) Not Reported Page % (Auto) Not Reported Eos % (Auto) Not Reported Baso % (Auto) Not Reported Nucleat RBC Rel Count Not Reported Absolute Neuts (auto) Not Reported Absolute Lymphs (auto) Not Reported Absolute Monos (auto) Not Reported Absolute Eos (auto) Not Reported Absolute Basos (auto) Not Reported Absolute Nucleated RBC Not Reported Immature Gran % Not Reported Seg Neutrophils % 80.8 % % Band Neutrophils % 1.0 % % Lymphocytes % 15.2 % % Monocytes % 3.0 % % Eosinophils % 0.0 % % Basophils % 0.0 % % Metamyelocytes % 0.0 % % Myelocytes % 0.0 % % Promyelocytes % 0.0 % % Blast Cells % 0.0 % % Immature Gran # Not Reported Absolute Seg Neuts 10.96 10^/uL H 10^/uL (1.70-6.50) Absolute Band Neuts 0.14 10^3/uL 10^3/uL (0.00-0.70) Absolute Lymphocytes 2.06 10^3/uL 10^3/uL (1.00-3.00) Absolute Monocytes 0.41 10^3/uL 10^3/uL (0.30-0.80) Absolute Eosinophils 0.00 10^3/uL L 10^3/uL (0.03-0.40) Absolute Basophils 0.00 10^3/uL L 10^3/uL (0.02-0.10) Absolute Metamyelocyte 0.00 10^3/mL 10^3/mL (0.00-0.00) Absolute Myelocytes 0.00 10^3/mL 10^3/mL (0.00-0.00) Absolute Promyelocytes 0.00 10^3/uL 10^3/uL (0.00-0.00) Absolute Plasma Cells 0.00 10^3/uL 10^3/uL (0.00-0.00) Nucleated RBCs 0 /100 WBC /100 WBC (0-0) RBC/WBC/PLT Morphology NORMAL (NORMAL) Absolute Blast Cells 0.00 10^3/uL 10^3/uL (0.00-0.00) Plasma Cells % 0.0 % % Platelet Estimate ADEQUATE (ADEQ) PT INR APTT Sodium Potassium Chloride Carbon Dioxide Anion Gap BUN Creatinine Estimated GFR Glucose Calcium Total Bilirubin Conjugated Bilirubin Unconjugated Bilirubin AST ALT Alkaline Phosphatase POC Troponin I Total Protein Albumin Lipase Medications Given: Discontinued Medications Al Hydroxide/Mg Hydroxide (Maalox Susp) 30 ml PO ONCE ONE Stop: 04/07/18 21:40 Last Admin: 04/07/18 21:55 Dose: 30 ml Hydromorphone HCl (Dilaudid) 0.25 mg IVP EDNOW ONE Stop: 04/07/18 21:40 Last Admin: 04/07/18 21:54 Dose: 0.25 mg Hyoscyamine Sulfate (Levsin, Hyomax-Sl) 0.25 mg PO ONCE ONE Stop: 04/07/18 21:40 Last Admin: 04/07/18 22:05 Dose: 0.25 mg Sodium Chloride (Ns) 500 mls @ 1,000 mls/hr IV EDNOW ONE PRN Reason: Protocol Stop: 04/07/18 21:58 Last Admin: 04/07/18 21:54 Dose: 500 mls Famotidine/Sodium Chloride (Pepcid 20 Mg (Premix)) 50 mls @ 200 mls/hr IV EDNOW ONE Stop: 04/07/18 21:53 Last Admin: 04/07/18 21:53 Dose: 50 mls Lidocaine (Lidocaine 2% Viscous) 15 ml PO ONCE ONE Stop: 04/07/18 21:40 Last Admin: 04/07/18 21:55 Dose: 15 ml Ondansetron HCl (Zofran) 4 mg IVP EDNOW ONE Stop: 04/07/18 21:40 Last Admin: 04/07/18 21:54 Dose: 4 mg Point of Care Test Results: Chemistry 04/07/18 22:16 POC Troponin I 0.05 ng/mL ng/mL (0.00-0.08) Departure - Departure Disposition: Home, Routine, Self-Care Clinical Impression: Epigastric pain Condition: Good Instructions: Epigastric Pain (ED) Additional Instructions: Read and follow provided instructions. 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 Continue taking her medications as prescribed. Return to the emergency department for return of pain, fever, shortness of breath or other serious concerns. Referrals: Criselda Morris MD [Primary Care Provider] - As per Instructions
[2018-04-07 21:51] LABS: PLATELET COUNT 380 10^3/uL (150-400)
[2018-04-07 22:00] LABS: INR 0.87 (0.83-1.16); PROTIME(PATIENT) 12.1 SEC (12.0-15.0)
--- NOTE | 2018-04-07 23:05 | CPEKG ---
Test Reason : OPEN Blood Pressure : / mmHG Vent. Rate : 074 BPM Atrial Rate : 076 BPM P-R Int : 127 ms QRS Dur : 098 ms QT Int : 359 ms P-R-T Axes : 028 -39 060 degrees QTc Int : 399 ms Sinus rhythm Multiple premature complexes, vent & supraven Left axis deviation Probable anteroseptal infarct, recent Confirmed by Sukumar Lara ([id number]) on 04/07/2018 11:04:15 PM Referred By: Confirmed By:Sukumar Lara
[2018-04-07 23:41] VITALS: BP 145/80
== END 2018-04-07 23:41 | disposition home or self-care (01) ==
DX: R10.13 Epigastric pain (principal); E86.9 Volume depletion, unspecified; Z95.0 Presence of cardiac pacemaker
CPT/HCPCS: 71045; 76705; 93005; 96361; 96365; 96375; 99285; J1170; J2405; 84484-PO

== ENCOUNTER → 2018-05-01 | Outpatient (CLI) | payer OTHER | LOC: FIMAGING 08:30 | PROVIDERS: ATTEND Internal Medicine Gastroenterology | DX: K21.9 Gastro-esophageal reflux disease without esophagitis (principal); K22.4 Dyskinesia of esophagus ==

== ENCOUNTER → 2018-06-25 | Outpatient (CLI) | payer OTHER | LOC: FIMAGING 12:20 | PROVIDERS: ATTEND Family Medicine | DX: Z13.820 Encounter for screening for osteoporosis (principal); M81.0 Age-related osteoporosis without current pathological fracture; Z78.0 Asymptomatic menopausal state; Z79.52 Long term (current) use of systemic steroids ==